=== PATIENT | female | born 1990 | race Caucasian/White ===

== ENCOUNTER 2017-06-14 12:06 | Inpatient (IN) | payer OTHER ==
[2017-06-14 12:52] VITALS: BMI 20.5
--- NOTE | 2017-06-14 14:49 | HP ---
CIWA Score - CIWA Score Nausea/Vomitin-No Nausea/No Vomiting Muscle Tremors: 4-Moderate,w/Arms Extend Anxiety: 4-Mod. Anxious/Guarded Agitation: 4-Moderately Restless Paroxysmal Sweats: 3 Orientation: 0-Oriented Tacttile Disturbances: 0-None Auditory Disturbances: 0-None Visual Disturbances: 0-None Headache: 1-Very Mild CIWA-Ar Total Score: 16 Admission ROS BHS - HPI Chief Complaint: I am here to detox. Allergies/Adverse Reactions: Allergies Allergy/AdvReac Type Severity Reaction Status Date / Time Fish Containing Products Allergy Severe Swelling Verified 06/14/17 14:26 History of Present Illness: pt is a 26yr old female with a history of benzodiazapine dependence seeking detox for treatment. Exam Limitations: No Limitations - Ebola screening Have you traveled outside of the country in the last 21 days: No (N) Have you had contact with anyone from an Ebola affected area: No Have you been sick,other than usual withdrawal symptoms: No Do you have a fever: No - Review of Systems Constitutional: Chills, Diaphoresis, Night Sweats, Changes in sleep EENT: reports: No Symptoms Reported Respiratory: reports: No Symptoms reported Cardiac: reports: No Symptoms Reported GI: reports: No Symptoms Reported : reports: No Symptoms Reported Musculoskeletal: reports: No Symptoms Reported Integumentary: reports: No Symptoms Reported Neuro: reports: No Symptoms reported Endocrine: reports: No Symptoms Reported Hematology: reports: No Symptoms Reported Psychiatric: reports: Judgement Intact, Mood/Affect Appropiate, Orientated x3, Agitated, Anxious Patient History - Patient Medical History Hx Anemia: Yes Hx Asthma: No Hx Chronic Obstructive Pulmonary Disease (COPD): No Hx Cancer: No Hx Cardiac Disorders: No Hx Congestive Heart Failure: No Hx Hypertension: Yes Hx Hypercholesterolemia: No Hx Pacemaker: No HX Cerebrovascular Accident: No Hx Seizures: No Hx Dementia: No Hx Diabetes: No Hx Gastrointestinal Disorders: No Hx Liver Disease: No Hx Genitourinary Disorders: No Hx Sexually Transmitted Disorders: No Hx Renal Disease (ESRD): No Hx Thyroid Disease: No Hx Human Immunodeficiency Virus (HIV): No (negative) Hx Hepatitis C: No (negative) Hx Depression: Yes Hx Suicide Attempt: No (denies) Hx Bipolar Disorder: No Hx Schizophrenia: No - Patient Surgical History Past Surgical History: No Hx Neurologic Surgery: No Hx Cataract Extraction: No Hx Cardiac Surgery: No Hx Lung Surgery: No Hx Breast Surgery: No Hx Breast Biopsy: No Hx Abdominal Surgery: No Hx Appendectomy: No Hx Cholecystectomy: No Hx Genitourinary Surgery: No Hx Section: No Hx Orthopedic Surgery: No Anesthesia Reaction: No - PPD History Previous Implant?: Yes Documented Results: Negative w/o proof Implanted On Prior [facility] Admission?: No PPD to be Administered?: No - Reproductive History Patient is a Female of Child Bearing Age (11 -55 yrs old): Yes Last Menstrual Period: 06/14/17 Patient : No - Smoking Cessation Smoking history: Current every day smoker Have you smoked in the past 12 months: Yes Aproximately how many cigarettes per day: 20 Hx Chewing Tobacco Use: No Initiated information on smoking cessation: Yes 'Breaking Loose' booklet given: 06/14/17 - Substance & Tx. History Hx Alcohol Use: No Hx Substance Use: Yes Substance Use Type: Prescribed, Tranquilizers Hx Substance Use Treatment: Yes (last detox [facility] a year ago) - Substances Abused Xanax or Klonopin Route: Oral Frequency: Daily Amount used: 6-8 mg. Age of first use: 22 Date of Last Use: 06/13/17 Family Disease History - Family Disease History Family History: Denies Admission Physical Exam S - Vital Signs Vital Signs: Vital Signs - 24 hr 06/14/17 12:50 Temperature 98.9 F Pulse Rate 113 H Respiratory 18 Rate Blood Pressure 130/95 - Physical General Appearance: Yes: Appropriately Dressed, Moderate Distress, Tremorous, Irritable, Sweating, Anxious HEENTM: Yes: Normal Voice, Nasal Congestion, Rhinorrhea Respiratory: Yes: Lungs Clear, Normal Breath Sounds, No Respiratory Distress Neck: Yes: No masses,lesions,Nodules Breast: Yes: Within Normal Limits Cardiology: Yes: Regular Rhythm, Regular Rate, S1, S2 Abdominal: Yes: Normal Bowel Sounds, Non Tender, Soft Genitourinary: Yes: Within Normal Limits Back: Yes: Normal Inspection Musculoskeletal: Yes: full range of Motion Extremities: Yes: Normal Capillary Refill, Normal Inspection, Non-Tender, Tremors Neurological: Yes: Fully Oriented, Alert, Normal Response Integumentary: Yes: Normal Color Lymphatic: Yes: Within Normal Limits - Diagnostic (1) Cocaine dependence Current Visit: Yes Status: Chronic Qualifiers: Substance use status: uncomplicated Qualified Code(s): F14.20 - Cocaine dependence, uncomplicated (2) Sedative, hypnotic or anxiolytic dependence with withdrawal, uncomplicated Current Visit: Yes Status: Chronic (3) Methadone maintenance therapy patient Current Visit: Yes Status: Chronic Cleared for Admission [facility] - Detox or Rehab [facility] Level of Care: Medically Managed Detox Regimen/Protocol: Valium S Breath Alcohol Content Breath Alcohol Content: 0 Urine Pregancy Test - Result Urine Test Results: Negative- NO Line Present Urine Drug Screen - Results Drug Screen Negative: No Urine Drug Screen Results: VICTOR MANUEL-Cocaine, BZO-Benzodiazepines, MTD-Methadone, TCA- Tricyclic Antidepress
[2017-06-14] MEDS ORDERED: MENTHOL/PHENOL 1 EACH UD MM PRN (14:56)
[2017-06-14] MEDS ORDERED: P-EPHED 60MG/TRIPROLIDI 2.5MG TABLET PO PRN (14:56)
[2017-06-14] MEDS ORDERED: MAG HYDROX/AL HYDROX/SIMETH 30 ML UNIT-DOSE CUP PO PRN (14:56)
[2017-06-14] MEDS ORDERED: MAGNESIUM CITRATE 300 ML BOTTLE PO PRN (14:56)
[2017-06-14] MEDS ORDERED: IBUPROFEN 400 MG TABLET (FP) PO PRN (14:56)
[2017-06-14] MEDS ORDERED: LOPERAMIDE HCL 2 MG CAPSULE PO PRN (14:56)
[2017-06-14] MEDS ORDERED: guaiFENesin/D-METHORPHAN HB 10 ML UNIT-DOSE CUPS PO PRN (14:56)
[2017-06-14] MEDS ORDERED: MAGNESIUM HYDROX 2400MG/30ML ORAL SUSPENSION 30 ML CUP PO PRN (14:56)
[2017-06-14] MEDS ORDERED: ACETAMINOPHEN 325 MG TABLET (FP) PO PRN (14:56)
[2017-06-14] MEDS ORDERED: diazePAM 5 MG TABLET PO ONE (16:00)
[2017-06-14] MEDS: NICOTINE POLACRILEX 4 MG GUM BC PRN (17:30)
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
[2017-06-14 22:25] LABS: URINE APPEARANCE CLEAR; URINE BILIRUBIN NEGATIVE (NEGATIVE); URINE BLOOD 3+ (NEGATIVE); URINE COLOR LTYELLOW; URINE GLUCOSE (UA) NEGATIVE (NEGATIVE); URINE KETONE NEGATIVE (NEGATIVE); URINE NITRITE NEGATIVE (NEGATIVE); URINE PROTEIN NEGATIVE (NEGATIVE); URINE UROBILINOGEN NEGATIVE mg/dL (0.2-1.0)
[2017-06-14 22:26] LABS: URINE LEUK ESTERASE 2+ (NEGATIVE)
[2017-06-14] MEDS: cloNIDine HCL 0.1 MG TABLET PO SCH (22:30)
[2017-06-14] MEDS: QUEtiapine FUMARATE 100 MG TABLET (FP) PO SCH (22:30)
[2017-06-14] MEDS: AMITRIPTYLINE HCL 25 MG TABLET (FP) PO SCH (22:30)
[2017-06-14] MEDS: THIAMINE HCL 100 MG TABLET (FP) PO SCH (22:30)
[2017-06-14] MEDS: diazePAM 5 MG TABLET PO SCH (22:30)
[2017-06-15] MEDS: diazePAM 5 MG TABLET PO SCH ×3 (05:45→22:30)
[2017-06-15] MEDS: PRENATAL VITAMINS W/ FOLIC ACID TABLET (FP) PO SCH (09:56)
[2017-06-15] MEDS: NICOTINE 21 MG/24 HOURS TOPICAL PATCH TD SCH (09:56)
[2017-06-15] MEDS: diazePAM 5 MG TABLET PO PRN (09:56)
[2017-06-15 10:28] LABS: HEMOGLOBIN 12.1 GM/dL (10.7-15.3); MCH 29.7 pg (25.7-33.7); MCHC 32.8 g/dl (32.0-36.0); MEAN CELL VOLUME 90.5 fl (80-96); MEAN PLT VOLUME 7.6 fl (7.5-11.1); PLATELET COUNT 387 K/MM3 (134-434); RBC 4.08 M/mm3 (3.60-5.2); WHITE BLOOD COUNT 4.8 K/mm3 (4.0-10.0)
[2017-06-15] MEDS ORDERED: METHADONE HCL 10 MG TABLET PO SCH ×3 (10:30→11:00)
[2017-06-15 10:38] LABS: CHLORIDE 100 mmol/L (98-107); POTASSIUM 4.6 mmol/L (3.5-5.1); SODIUM 137 mmol/L (136-145)
[2017-06-15 10:52] LABS: ALBUMIN 3.3 g/dl (3.4-5.0); ALK PHOS 151 U/L (45-117); ANION GAP 4 (8-16); BILIRUBIN,TOTAL 0.6 mg/dL (0.2-1.0); BLOOD UREA NITROGEN 6 mg/dL (7-18); CALCIUM 9.3 mg/dL (8.5-10.1); CO2 33 mmol/L (21-32); CREATININE 0.6 mg/dL (0.55-1.02); GLUCOSE,RANDOM 86 mg/dL (74-106); SGOT/AST 70 U/L (15-37); SGPT/ALT 45 U/L (12-78); TOT PROT 6.9 g/dl (6.4-8.2)
[2017-06-15] MEDS ORDERED: METHADONE 120 MG, METHADONE 10 MG PO ONE (11:30)
[2017-06-15] MEDS ORDERED: METHADONE HCL 10 MG TABLET ONE (11:43)
[2017-06-15] MEDS ORDERED: METHADONE HCL 40 MG DISPERSABLE TABLET ONE (11:43)
[2017-06-15] MEDS: cloNIDine HCL 0.1 MG TABLET PO SCH ×2 (11:45→22:29)
--- NOTE | 2017-06-15 15:59 | EKG ---
Test Reason : Blood Pressure : / mmHG Vent. Rate : 102 BPM Atrial Rate : 102 BPM P-R Int : 164 ms QRS Dur : 082 ms QT Int : 368 ms P-R-T Axes : 056 062 041 degrees QTc Int : 479 ms SINUS TACHYCARDIA OTHERWISE NORMAL ECG NO PREVIOUS ECGS AVAILABLE Confirmed by DAYANNA NAZARIO, ASHLIE ([id number]) on 06/15/2017 3:59:29 PM Referred By: Confirmed By:ASHLIE ALAN MD
--- NOTE | 2017-06-15 16:33 | PN ---
S CIWA - CIWA Score Nausea/Vomitin Muscle Tremors: 3 Anxiety: 5 Agitation: 5 Paroxysmal Sweats: 3 Orientation: 0-Oriented Tacttile Disturbances: 0-None Auditory Disturbances: 0-None Visual Disturbances: 0-None Headache: 0-None Present CIWA-Ar Total Score: 18 BHS Progress Note (SOAP) Subjective: anxious sweats Objective: 06/15/17 16:31 irritable anxious Vital Signs Temperature 96.1 F L 06/15/17 14:58 Pulse Rate 109 H 06/15/17 14:58 Respiratory Rate 18 06/15/17 14:58 Blood Pressure 116/70 06/15/17 14:58 O2 Sat by Pulse Oximetry (%) Laboratory Last Values WBC 4.8 K/mm3 (4.0-10.0) 06/15/17 08:00 RBC 4.08 M/mm3 (3.60-5.2) 06/15/17 08:00 Hgb 12.1 GM/dL (10.7-15.3) 06/15/17 08:00 Hct 37.0 % (32.4-45.2) 06/15/17 08:00 MCV 90.5 fl (80-96) 06/15/17 08:00 MCH 29.7 pg (25.7-33.7) 06/15/17 08:00 MCHC 32.8 g/dl (32.0-36.0) 06/15/17 08:00 RDW 14.0 % (11.6-15.6) 06/15/17 08:00 Plt Count 387 K/MM3 (134-434) 06/15/17 08:00 MPV 7.6 fl (7.5-11.1) 06/15/17 08:00 Sodium 137 mmol/L (136-145) 06/15/17 08:00 Potassium 4.6 mmol/L (3.5-5.1) 06/15/17 08:00 Chloride 100 mmol/L (98-107) 06/15/17 08:00 Carbon Dioxide 33 mmol/L (21-32) H 06/15/17 08:00 Anion Gap 4 (8-16) L 06/15/17 08:00 BUN 6 mg/dL (7-18) L 06/15/17 08:00 Creatinine 0.6 mg/dL (0.55-1.02) 06/15/17 08:00 Creat Clearance w eGFR > 60 (>60) 06/15/17 08:00 Random Glucose 86 mg/dL (74-106) 06/15/17 08:00 Calcium 9.3 mg/dL (8.5-10.1) 06/15/17 08:00 Total Bilirubin 0.6 mg/dL (0.2-1.0) 06/15/17 08:00 AST 70 U/L (15-37) H 06/15/17 08:00 ALT 45 U/L (12-78) 06/15/17 08:00 Alkaline Phosphatase 151 U/L (45-117) H 06/15/17 08:00 Total Protein 6.9 g/dl (6.4-8.2) 06/15/17 08:00 Albumin 3.3 g/dl (3.4-5.0) L 06/15/17 08:00 Urine Color Ltyellow 06/14/17 20:06 Urine Appearance Clear 06/14/17 20:06 Urine pH 7.0 (5.0-8.0) 06/14/17 20:06 Ur Specific [place] 1.005 (1.001-1.035) 06/14/17 20:06 Urine Protein Negative (NEGATIVE) 06/14/17 20:06 Urine Glucose (UA) Negative (NEGATIVE) 06/14/17 20:06 Urine Ketones Negative (NEGATIVE) 06/14/17 20:06 Urine Blood 3+ (NEGATIVE) H 06/14/17 20:06 Urine Nitrite Negative (NEGATIVE) 06/14/17 20:06 Urine Bilirubin Negative (NEGATIVE) 06/14/17 20:06 Urine Urobilinogen Negative mg/dL (0.2-1.0) 06/14/17 20:06 Ur Leukocyte Esterase 2+ (NEGATIVE) H 06/14/17 20:06 Urine WBC (Auto) 73 /hpf (3-5) 06/14/17 20:06 Urine RBC (Auto) 61 /hpf (0-3) 06/14/17 20:06 RPR Titer Nonreactive (NONREACTIVE) 06/15/17 08:00 labs noted Assessment: 06/15/17 16:32 withdrawal sx Plan: continue detox
[2017-06-15] MEDS: THIAMINE HCL 100 MG TABLET (FP) PO SCH (22:30)
[2017-06-15] MEDS: AMITRIPTYLINE HCL 25 MG TABLET (FP) PO SCH (22:30)
[2017-06-15] MEDS: QUEtiapine FUMARATE 100 MG TABLET (FP) PO SCH (22:30)
[2017-06-16] MEDS ORDERED: METHADONE HCL 40 MG DISPERSABLE TABLET ONE (05:24)
[2017-06-16] MEDS ORDERED: METHADONE HCL 10 MG TABLET ONE (05:24)
[2017-06-16] MEDS: METHADONE 120 MG, METHADONE 10 MG PO SCH (06:03)
[2017-06-16] MEDS: diazePAM 5 MG TABLET PO PRN ×2 (08:48→13:31)
[2017-06-16] MEDS: PRENATAL VITAMINS W/ FOLIC ACID TABLET (FP) PO SCH (10:31)
[2017-06-16] MEDS: cloNIDine HCL 0.1 MG TABLET PO SCH ×2 (10:31→22:33)
[2017-06-16] MEDS: diazePAM 5 MG TABLET PO SCH ×2 (10:31→22:33)
[2017-06-16] MEDS: NICOTINE 21 MG/24 HOURS TOPICAL PATCH TD SCH (10:32)
--- NOTE | 2017-06-16 12:36 | PN ---
[facility] CIWA - CIWA Score Nausea/Vomitin-No Nausea/No Vomiting Muscle Tremors: 4-Moderate,w/Arms Extend Anxiety: 4-Mod. Anxious/Guarded Agitation: 3 Paroxysmal Sweats: 1-Minimal Palms Moist Orientation: 0-Oriented Tacttile Disturbances: 0-None Auditory Disturbances: 0-None Visual Disturbances: 0-None Headache: 0-None Present CIWA-Ar Total Score: 12 BHS Progress Note (SOAP) Subjective: sweat tremor anxiety irritable Objective: 06/16/17 12:35 Vital Signs Temperature 97.6 F 06/16/17 10:18 Pulse Rate 103 H 06/16/17 10:18 Respiratory Rate 16 06/16/17 10:18 Blood Pressure 129/64 06/16/17 10:18 O2 Sat by Pulse Oximetry (%) Laboratory Last Values WBC 4.8 K/mm3 (4.0-10.0) 06/15/17 08:00 RBC 4.08 M/mm3 (3.60-5.2) 06/15/17 08:00 Hgb 12.1 GM/dL (10.7-15.3) 06/15/17 08:00 Hct 37.0 % (32.4-45.2) 06/15/17 08:00 MCV 90.5 fl (80-96) 06/15/17 08:00 MCH 29.7 pg (25.7-33.7) 06/15/17 08:00 MCHC 32.8 g/dl (32.0-36.0) 06/15/17 08:00 RDW 14.0 % (11.6-15.6) 06/15/17 08:00 Plt Count 387 K/MM3 (134-434) 06/15/17 08:00 MPV 7.6 fl (7.5-11.1) 06/15/17 08:00 Sodium 137 mmol/L (136-145) 06/15/17 08:00 Potassium 4.6 mmol/L (3.5-5.1) 06/15/17 08:00 Chloride 100 mmol/L (98-107) 06/15/17 08:00 Carbon Dioxide 33 mmol/L (21-32) H 06/15/17 08:00 Anion Gap 4 (8-16) L 06/15/17 08:00 BUN 6 mg/dL (7-18) L 06/15/17 08:00 Creatinine 0.6 mg/dL (0.55-1.02) 06/15/17 08:00 Creat Clearance w eGFR > 60 (>60) 06/15/17 08:00 Random Glucose 86 mg/dL (74-106) 06/15/17 08:00 Calcium 9.3 mg/dL (8.5-10.1) 06/15/17 08:00 Total Bilirubin 0.6 mg/dL (0.2-1.0) 06/15/17 08:00 AST 70 U/L (15-37) H 06/15/17 08:00 ALT 45 U/L (12-78) 06/15/17 08:00 Alkaline Phosphatase 151 U/L (45-117) H 06/15/17 08:00 Total Protein 6.9 g/dl (6.4-8.2) 06/15/17 08:00 Albumin 3.3 g/dl (3.4-5.0) L 06/15/17 08:00 Urine Color Ltyellow 06/14/17 20:06 Urine Appearance Clear 06/14/17 20:06 Urine pH 7.0 (5.0-8.0) 06/14/17 20:06 Ur Specific [place] 1.005 (1.001-1.035) 06/14/17 20:06 Urine Protein Negative (NEGATIVE) 06/14/17 20:06 Urine Glucose (UA) Negative (NEGATIVE) 06/14/17 20:06 Urine Ketones Negative (NEGATIVE) 06/14/17 20:06 Urine Blood 3+ (NEGATIVE) H 06/14/17 20:06 Urine Nitrite Negative (NEGATIVE) 06/14/17 20:06 Urine Bilirubin Negative (NEGATIVE) 06/14/17 20:06 Urine Urobilinogen Negative mg/dL (0.2-1.0) 06/14/17 20:06 Ur Leukocyte Esterase 2+ (NEGATIVE) H 06/14/17 20:06 Urine WBC (Auto) 73 /hpf (3-5) 06/14/17 20:06 Urine RBC (Auto) 61 /hpf (0-3) 06/14/17 20:06 RPR Titer Nonreactive (NONREACTIVE) 06/15/17 08:00 lab noted repeat ua Assessment: 06/16/17 12:35 withdrawal sx Plan: continue detox
[2017-06-16] MEDS: AMITRIPTYLINE HCL 25 MG TABLET (FP) PO SCH (22:33)
[2017-06-16] MEDS: THIAMINE HCL 100 MG TABLET (FP) PO SCH (22:33)
[2017-06-16] MEDS: QUEtiapine FUMARATE 100 MG TABLET (FP) PO SCH (22:33)
[2017-06-17] MEDS ORDERED: METHADONE HCL 40 MG DISPERSABLE TABLET ONE (04:44)
[2017-06-17] MEDS ORDERED: METHADONE HCL 10 MG TABLET ONE (04:45)
[2017-06-17] MEDS: METHADONE 120 MG, METHADONE 10 MG PO SCH (05:24)
[2017-06-17] MEDS: diazePAM 5 MG TABLET PO PRN (08:37)
--- NOTE | 2017-06-17 09:49 | PN ---
BHS Progress Note (SOAP) Subjective: feeling better less sweat no tremor less anxiousness Objective: 06/17/17 09:48 Vital Signs Temperature 98.2 F 06/17/17 06:35 Pulse Rate 68 06/17/17 06:35 Respiratory Rate 18 06/17/17 06:35 Blood Pressure 111/57 06/17/17 06:35 O2 Sat by Pulse Oximetry (%) Laboratory Last Values WBC 4.8 K/mm3 (4.0-10.0) 06/15/17 08:00 RBC 4.08 M/mm3 (3.60-5.2) 06/15/17 08:00 Hgb 12.1 GM/dL (10.7-15.3) 06/15/17 08:00 Hct 37.0 % (32.4-45.2) 06/15/17 08:00 MCV 90.5 fl (80-96) 06/15/17 08:00 MCH 29.7 pg (25.7-33.7) 06/15/17 08:00 MCHC 32.8 g/dl (32.0-36.0) 06/15/17 08:00 RDW 14.0 % (11.6-15.6) 06/15/17 08:00 Plt Count 387 K/MM3 (134-434) 06/15/17 08:00 MPV 7.6 fl (7.5-11.1) 06/15/17 08:00 Sodium 137 mmol/L (136-145) 06/15/17 08:00 Potassium 4.6 mmol/L (3.5-5.1) 06/15/17 08:00 Chloride 100 mmol/L (98-107) 06/15/17 08:00 Carbon Dioxide 33 mmol/L (21-32) H 06/15/17 08:00 Anion Gap 4 (8-16) L 06/15/17 08:00 BUN 6 mg/dL (7-18) L 06/15/17 08:00 Creatinine 0.6 mg/dL (0.55-1.02) 06/15/17 08:00 Creat Clearance w eGFR > 60 (>60) 06/15/17 08:00 Random Glucose 86 mg/dL (74-106) 06/15/17 08:00 Calcium 9.3 mg/dL (8.5-10.1) 06/15/17 08:00 Total Bilirubin 0.6 mg/dL (0.2-1.0) 06/15/17 08:00 AST 70 U/L (15-37) H 06/15/17 08:00 ALT 45 U/L (12-78) 06/15/17 08:00 Alkaline Phosphatase 151 U/L (45-117) H 06/15/17 08:00 Total Protein 6.9 g/dl (6.4-8.2) 06/15/17 08:00 Albumin 3.3 g/dl (3.4-5.0) L 06/15/17 08:00 Urine Color Ltyellow 06/14/17 20:06 Urine Appearance Clear 06/14/17 20:06 Urine pH 7.0 (5.0-8.0) 06/14/17 20:06 Ur Specific [place] 1.005 (1.001-1.035) 06/14/17 20:06 Urine Protein Negative (NEGATIVE) 06/14/17 20:06 Urine Glucose (UA) Negative (NEGATIVE) 06/14/17 20:06 Urine Ketones Negative (NEGATIVE) 06/14/17 20:06 Urine Blood 3+ (NEGATIVE) H 06/14/17 20:06 Urine Nitrite Negative (NEGATIVE) 06/14/17 20:06 Urine Bilirubin Negative (NEGATIVE) 06/14/17 20:06 Urine Urobilinogen Negative mg/dL (0.2-1.0) 06/14/17 20:06 Ur Leukocyte Esterase 2+ (NEGATIVE) H 06/14/17 20:06 Urine WBC (Auto) 73 /hpf (3-5) 06/14/17 20:06 Urine RBC (Auto) 61 /hpf (0-3) 06/14/17 20:06 RPR Titer Nonreactive (NONREACTIVE) 06/15/17 08:00 lab noted Assessment: 06/17/17 09:49 mild withdrawal sx Plan: medially supervised detox
[2017-06-17] MEDS: cloNIDine HCL 0.1 MG TABLET PO SCH ×2 (10:44→22:15)
[2017-06-17] MEDS: diazePAM 5 MG TABLET PO SCH ×2 (10:44→22:14)
[2017-06-17] MEDS: NICOTINE 21 MG/24 HOURS TOPICAL PATCH TD SCH (10:44)
[2017-06-17] MEDS: PRENATAL VITAMINS W/ FOLIC ACID TABLET (FP) PO SCH (10:44)
[2017-06-17] MEDS: NICOTINE POLACRILEX 4 MG GUM BC PRN (10:44)
[2017-06-17] MEDS: hydrOXYzine PAMOATE 50 MG CAPSULE (FP) PO PRN ×2 (17:08→22:14)
[2017-06-17] MEDS: QUEtiapine FUMARATE 100 MG TABLET (FP) PO SCH (22:14)
[2017-06-17] MEDS: THIAMINE HCL 100 MG TABLET (FP) PO SCH (22:14)
[2017-06-17] MEDS: AMITRIPTYLINE HCL 25 MG TABLET (FP) PO SCH (22:14)
[2017-06-18] MEDS ORDERED: METHADONE HCL 10 MG TABLET ONE (03:54)
[2017-06-18] MEDS ORDERED: METHADONE HCL 40 MG DISPERSABLE TABLET ONE (03:54)
[2017-06-18] MEDS: METHADONE 120 MG, METHADONE 10 MG PO SCH (05:53)
--- NOTE | 2017-06-18 09:16 | PN ---
BHS Progress Note (SOAP) Subjective: anxiety alert oriented x 3 restlessness worry about relapse Objective: 06/18/17 09:12 Vital Signs Temperature 97.2 F L 06/18/17 06:30 Pulse Rate 85 06/18/17 06:30 Respiratory Rate 16 06/18/17 06:30 Blood Pressure 100/68 06/18/17 06:30 O2 Sat by Pulse Oximetry (%) Laboratory Last Values WBC 4.8 K/mm3 (4.0-10.0) 06/15/17 08:00 RBC 4.08 M/mm3 (3.60-5.2) 06/15/17 08:00 Hgb 12.1 GM/dL (10.7-15.3) 06/15/17 08:00 Hct 37.0 % (32.4-45.2) 06/15/17 08:00 MCV 90.5 fl (80-96) 06/15/17 08:00 MCH 29.7 pg (25.7-33.7) 06/15/17 08:00 MCHC 32.8 g/dl (32.0-36.0) 06/15/17 08:00 RDW 14.0 % (11.6-15.6) 06/15/17 08:00 Plt Count 387 K/MM3 (134-434) 06/15/17 08:00 MPV 7.6 fl (7.5-11.1) 06/15/17 08:00 Sodium 137 mmol/L (136-145) 06/15/17 08:00 Potassium 4.6 mmol/L (3.5-5.1) 06/15/17 08:00 Chloride 100 mmol/L (98-107) 06/15/17 08:00 Carbon Dioxide 33 mmol/L (21-32) H 06/15/17 08:00 Anion Gap 4 (8-16) L 06/15/17 08:00 BUN 6 mg/dL (7-18) L 06/15/17 08:00 Creatinine 0.6 mg/dL (0.55-1.02) 06/15/17 08:00 Creat Clearance w eGFR > 60 (>60) 06/15/17 08:00 Random Glucose 86 mg/dL (74-106) 06/15/17 08:00 Calcium 9.3 mg/dL (8.5-10.1) 06/15/17 08:00 Total Bilirubin 0.6 mg/dL (0.2-1.0) 06/15/17 08:00 AST 70 U/L (15-37) H 06/15/17 08:00 ALT 45 U/L (12-78) 06/15/17 08:00 Alkaline Phosphatase 151 U/L (45-117) H 06/15/17 08:00 Total Protein 6.9 g/dl (6.4-8.2) 06/15/17 08:00 Albumin 3.3 g/dl (3.4-5.0) L 06/15/17 08:00 Urine Color Ltyellow 06/14/17 20:06 Urine Appearance Clear 06/14/17 20:06 Urine pH 7.0 (5.0-8.0) 06/14/17 20:06 Ur Specific [place] 1.005 (1.001-1.035) 06/14/17 20:06 Urine Protein Negative (NEGATIVE) 06/14/17 20:06 Urine Glucose (UA) Negative (NEGATIVE) 06/14/17 20:06 Urine Ketones Negative (NEGATIVE) 06/14/17 20:06 Urine Blood 3+ (NEGATIVE) H 06/14/17 20:06 Urine Nitrite Negative (NEGATIVE) 06/14/17 20:06 Urine Bilirubin Negative (NEGATIVE) 06/14/17 20:06 Urine Urobilinogen Negative mg/dL (0.2-1.0) 06/14/17 20:06 Ur Leukocyte Esterase 2+ (NEGATIVE) H 06/14/17 20:06 Urine WBC (Auto) 73 /hpf (3-5) 06/14/17 20:06 Urine RBC (Auto) 61 /hpf (0-3) 06/14/17 20:06 RPR Titer Nonreactive (NONREACTIVE) 06/15/17 08:00 lab noted 06/18/17 09:13 patient denies urination discomfort denies pain denies frequency of urination denies burning sensation during urination Assessment: 06/18/17 09:14 mild withdrawal sx asymptomatic Plan: medically supervision x 1 days encourage oral fluid and personal hygiene patient wants to maintenance sobriety through aftercare and community support
[2017-06-18] MEDS ORDERED: diazePAM 5 MG TABLET PO SCH (10:00)
[2017-06-18] MEDS: cloNIDine HCL 0.1 MG TABLET PO SCH ×2 (11:23→22:46)
[2017-06-18] MEDS: PRENATAL VITAMINS W/ FOLIC ACID TABLET (FP) PO SCH (11:23)
[2017-06-18] MEDS: NICOTINE 21 MG/24 HOURS TOPICAL PATCH TD SCH (11:23)
[2017-06-18] MEDS: NICOTINE POLACRILEX 4 MG GUM BC PRN (11:25)
[2017-06-18] MEDS: THIAMINE HCL 100 MG TABLET (FP) PO SCH (22:46)
[2017-06-18] MEDS: QUEtiapine FUMARATE 100 MG TABLET (FP) PO SCH (22:46)
[2017-06-18] MEDS: AMITRIPTYLINE HCL 25 MG TABLET (FP) PO SCH (22:46)
[2017-06-19] MEDS ORDERED: METHADONE HCL 10 MG TABLET ONE (05:03)
[2017-06-19] MEDS ORDERED: METHADONE HCL 40 MG DISPERSABLE TABLET ONE (05:03)
[2017-06-19] MEDS: METHADONE 120 MG, METHADONE 10 MG PO SCH (05:34)
[2017-06-19 07:21] VITALS: BP 102/62; PULSE 87; TEMP 96.4
--- NOTE | 2017-06-19 09:14 | DS ---
[facility] Detox Discharge Summary Admission Date: 06/14/17 Discharge Date: 06/19/17 - History Present History: Sedative Dependence - Physical Exam Results Vital Signs: Vital Signs Temperature 96.4 F L 06/19/17 04:00 Pulse Rate 87 06/19/17 04:00 Respiratory Rate 18 06/19/17 04:00 Blood Pressure 102/62 06/19/17 04:00 O2 Sat by Pulse Oximetry (%) Pertinent Admission Physical Exam Findings: withdrawal sx Laboratory Last Values WBC 4.8 K/mm3 (4.0-10.0) 06/15/17 08:00 RBC 4.08 M/mm3 (3.60-5.2) 06/15/17 08:00 Hgb 12.1 GM/dL (10.7-15.3) 06/15/17 08:00 Hct 37.0 % (32.4-45.2) 06/15/17 08:00 MCV 90.5 fl (80-96) 06/15/17 08:00 MCH 29.7 pg (25.7-33.7) 06/15/17 08:00 MCHC 32.8 g/dl (32.0-36.0) 06/15/17 08:00 RDW 14.0 % (11.6-15.6) 06/15/17 08:00 Plt Count 387 K/MM3 (134-434) 06/15/17 08:00 MPV 7.6 fl (7.5-11.1) 06/15/17 08:00 Sodium 137 mmol/L (136-145) 06/15/17 08:00 Potassium 4.6 mmol/L (3.5-5.1) 06/15/17 08:00 Chloride 100 mmol/L (98-107) 06/15/17 08:00 Carbon Dioxide 33 mmol/L (21-32) H 06/15/17 08:00 Anion Gap 4 (8-16) L 06/15/17 08:00 BUN 6 mg/dL (7-18) L 06/15/17 08:00 Creatinine 0.6 mg/dL (0.55-1.02) 06/15/17 08:00 Creat Clearance w eGFR > 60 (>60) 06/15/17 08:00 Random Glucose 86 mg/dL (74-106) 06/15/17 08:00 Calcium 9.3 mg/dL (8.5-10.1) 06/15/17 08:00 Total Bilirubin 0.6 mg/dL (0.2-1.0) 06/15/17 08:00 AST 70 U/L (15-37) H 06/15/17 08:00 ALT 45 U/L (12-78) 06/15/17 08:00 Alkaline Phosphatase 151 U/L (45-117) H 06/15/17 08:00 Total Protein 6.9 g/dl (6.4-8.2) 06/15/17 08:00 Albumin 3.3 g/dl (3.4-5.0) L 06/15/17 08:00 Urine Color Ltyellow 06/14/17 20:06 Urine Appearance Clear 06/14/17 20:06 Urine pH 7.0 (5.0-8.0) 06/14/17 20:06 Ur Specific [place] 1.005 (1.001-1.035) 06/14/17 20:06 Urine Protein Negative (NEGATIVE) 06/14/17 20:06 Urine Glucose (UA) Negative (NEGATIVE) 06/14/17 20:06 Urine Ketones Negative (NEGATIVE) 06/14/17 20:06 Urine Blood 3+ (NEGATIVE) H 06/14/17 20:06 Urine Nitrite Negative (NEGATIVE) 06/14/17 20:06 Urine Bilirubin Negative (NEGATIVE) 06/14/17 20:06 Urine Urobilinogen Negative mg/dL (0.2-1.0) 06/14/17 20:06 Ur Leukocyte Esterase 2+ (NEGATIVE) H 06/14/17 20:06 Urine WBC (Auto) 73 /hpf (3-5) 06/14/17 20:06 Urine RBC (Auto) 61 /hpf (0-3) 06/14/17 20:06 RPR Titer Nonreactive (NONREACTIVE) 06/15/17 08:00 lab noted - Treatment Hospital Course: Detox Protocol Followed, Detoxed Safely, Responded well, Discharged Condition Good, Rehab Referral Accepted - Medication Discharge Medications: Ambulatory Orders Amitriptyline HCl [Elavil -] 25 mg PO HS 06/14/17 Hydroxyzine HCl 50 mg PO BID 06/14/17 Mirtazapine [Remeron [DO NOT STOCK]] 45 mg PO HS 06/14/17 Quetiapine Fumarate [Seroquel -] 100 mg PO HS 06/14/17 Clonidine HCl [Catapres] 0.2 mg PO BID #28 tablet 06/19/17 - Diagnosis (1) Sedative, hypnotic or anxiolytic dependence with withdrawal, uncomplicated Current Visit: Yes Status: Acute (2) Methadone maintenance therapy patient Current Visit: Yes Status: Chronic - AMA Did Patient Leave Against Medical Advice: No
== END 2017-06-19 10:13 | disposition home or self-care (01) | DRG 773 ==
LOC: YASAS 12:06 → Y6N 15:23
PROVIDERS: ADMIT Internal Medicine; ATTEND Internal Medicine
PROC: HZ2ZZZZ Detoxification Services for Substance Abuse Treatment (ICD-10-PCS; principal; 2017-06-14)
DX: F11.20 Opioid dependence, uncomplicated (principal); F13.230 Sedative, hypnotic or anxiolytic dependence with withdrawal, uncomplicated; F14.20 Cocaine dependence, uncomplicated; F43.10 Post-traumatic stress disorder, unspecified; F43.20 Adjustment disorder, unspecified
CPT/HCPCS: 36415; 80053; 81003; 81015; 85027; 86593; 93005; 93010; J0735

== ENCOUNTER 2024-04-14 17:01 | Inpatient (IN) | payer OTHER ==
[2024-04-14 17:33] VITALS: BMI 25.7
[2024-04-14] MEDS ORDERED: IBUPROFEN 600 MG TABLET (FP) PO PRN (17:47)
[2024-04-14] MEDS ORDERED: P-EPHED 60MG/TRIPROLIDI 2.5MG TABLET PO PRN (17:47)
[2024-04-14] MEDS ORDERED: MAG HYDROX/AL HYDROX/SIMETH 30 ML UNIT-DOSE CUP PO PRN (17:47)
[2024-04-14] MEDS ORDERED: DICYCLOMINE HCL 10 MG CAPSULE PO PRN (17:47)
[2024-04-14] MEDS ORDERED: BENZONATATE 200 MG CAPSULE PO PRN (17:47)
[2024-04-14] MEDS ORDERED: ONDANSETRON *ODT* 4 MG TABLET SL PRN (17:47)
[2024-04-14] MEDS ORDERED: NALOXONE (NARCAN) HCL 4 MG/0.1 ML SPRAY NS PRN (17:47)
[2024-04-14] MEDS ORDERED: POLYETHYLENE GLYCOL (HEALTHYLAX) 3350 17 GM PACKET PO PRN (17:47)
[2024-04-14] MEDS ORDERED: LOPERAMIDE HCL 2 MG CAPSULE PO PRN (17:47)
[2024-04-14] MEDS ORDERED: IBUPROFEN 400 MG TABLET (FP) PO PRN (17:47)
[2024-04-14] MEDS ORDERED: BENZOCAINE/MENTHOL (CHLORASEPTIC ) LOZENGE MM PRN (17:47)
[2024-04-14] MEDS ORDERED: NICOTINE POLACRILEX 2 MG LOZENGE BC PRN (17:47)
[2024-04-14] MEDS ORDERED: BISMUTH SUBSALICYLATE 524 MG/30 ML PO PRN (17:47)
[2024-04-14] MEDS ORDERED: guaiFENesin 600 MG TABLET.ER (FP) PO PRN (17:47)
[2024-04-14] MEDS ORDERED: MAGNESIUM HYDROX 2400MG/30ML ORAL SUSPENSION 30 ML CUP PO PRN (17:47)
[2024-04-14] MEDS ORDERED: diazePAM 5 MG TABLET ONE (18:30)
[2024-04-14] MEDS: diazePAM 5 MG TABLET PO ONE (18:31)
[2024-04-14] MEDS: levETIRAcetam 500 MG TABLET (FP) PO SCH (22:37)
[2024-04-14] MEDS: diazePAM 5 MG TABLET PO SCH (22:37)
[2024-04-14] MEDS: MELATONIN 5 MG TABLETS PO SCH (22:37)
[2024-04-14] MEDS: THIAMINE 100 MG TABLET PO SCH (22:37)
[2024-04-14] MEDS: METHOCARBAMOL 500 MG TABLET PO PRN (22:37)
[2024-04-15] MEDS ORDERED: methaDONE HCL 10 MG TABLET PO ONE (09:22)
[2024-04-15] MEDS: PRENATAL VITAMINS W/ FOLIC ACID TABLET (FP) PO SCH (09:58)
[2024-04-15] MEDS: cloNIDine HCL 0.1 MG TABLET PO PRN (11:53)
[2024-04-15 12:45] LABS: HEMOGLOBIN 12.3 GM/dL (10.7-15.3); MCH 29.4 pg (25.7-33.7); MCHC 32.5 g/dl (32.0-36.0); MEAN CELL VOLUME 90.5 fl (80-96); MEAN PLT VOLUME 8.5 fl (7.5-11.1); PLATELET COUNT 285 10^3/uL (134-434); RDW 13.2 % (11.6-15.6); WHITE BLOOD COUNT 6.4 K/mm3 (4.0-10.0)
[2024-04-15 12:50] LABS: CHLORIDE 103 mmol/L (98-107); POTASSIUM 4.2 mmol/L (3.5-5.1); SODIUM 139 mmol/L (136-145)
[2024-04-15 12:52] LABS: ALBUMIN 3.6 g/dl (3.4-5.0); ANION GAP 7 mmol/L (4-13); BLOOD UREA NITROGEN 7.5 mg/dL (7-18); CALCIUM 9.4 mg/dL (8.5-10.1); CO2 29 mmol/L (21-32); GLUCOSE,RANDOM 110 mg/dL (74-106)
[2024-04-15 12:56] LABS: CREATININE 0.8 mg/dL (0.55-1.3); SGOT/AST 19 U/L (15-37); SGPT/ALT 19 U/L (13-61)
[2024-04-15 12:58] LABS: BILIRUBIN,TOTAL 0.2 mg/dL (0.2-1); TOT PROT 6.6 g/dl (6.4-8.2)
[2024-04-15 12:59] LABS: ALK PHOS 145 U/L (45-117)
[2024-04-15] MEDS: GABAPENTIN 400 MG CAPSULE PO SCH (14:07)
[2024-04-15] MEDS: ACETAMINOPHEN 325 MG TABLET (FP) PO PRN (17:35)
[2024-04-15] MEDS: MIRTAZAPINE 15 MG TABLET (FP) PO SCH (22:14)
[2024-04-16] MEDS: diazePAM 5 MG TABLET PO SCH (05:34)
[2024-04-16] MEDS ORDERED: methaDONE HCL 10 MG TABLET PO SCH (06:00)
[2024-04-16] MEDS: diazePAM 5 MG TABLET PO PRN (09:07)
[2024-04-16] MEDS: NICOTINE POLACRILEX 2 MG GUM BUC PRN (09:08)
[2024-04-16] MEDS: NALOXONE (NYS OPIOID OVERDOSE PROGRAM) 4 MG/0.1 ML SPRAY NS SCH (15:49)
[2024-04-16] MEDS: SUVOREXANT 5 MG TABLET PO PRN (22:53)
[2024-04-17] MEDS: diazePAM 5 MG TABLET PO SCH (05:24)
[2024-04-17] MEDS ORDERED: NALOXONE (NYS OPIOID OVERDOSE PROGRAM) 4 MG/0.1 ML SPRAY NS SCH (16:26)
[2024-04-17 18:38] VITALS: BP 125/84; PULSE 87; RESP 18; TEMP 96.8
[2024-04-18] MEDS ORDERED: diazePAM 5 MG TABLET PO ONE (06:00)
[2024-04-18] MEDS ORDERED: NALOXONE (NYS OPIOID OVERDOSE PROGRAM) 4 MG/0.1 ML SPRAY NS SCH (08:00)
== END 2024-04-17 17:07 | disposition home or self-care (01) | DRG 773 ==
LOC: YASAS 17:01 → Y6N 18:20
PROVIDERS: ADMIT Allergy & Immunology; ATTEND Surgery
PROC: HZ2ZZZZ Detoxification Services for Substance Abuse Treatment (ICD-10-PCS; principal; 2024-04-16)
DX: F13.230 Sedative, hypnotic or anxiolytic dependence with withdrawal, uncomplicated (principal); F11.20 Opioid dependence, uncomplicated; F14.20 Cocaine dependence, uncomplicated; F17.210 Nicotine dependence, cigarettes, uncomplicated; F43.10 Post-traumatic stress disorder, unspecified; I10 Essential (primary) hypertension; Z91.013 Allergy to seafood; Z91.410 Personal history of adult physical and sexual abuse; Z56.0 Unemployment, unspecified; Z59.00 Homelessness unspecified
CPT/HCPCS: 36415; 80053; 80307; 85027; 86780; 93005; 93010